=== PATIENT | female | born 1985 | race Caucasian/White ===

== ENCOUNTER → 2022-08-09 06:14 | Outpatient (CLI) | payer BC, SELFPAY | PROVIDERS: PCP Nurse Practitioner Family; Visit Provider Nurse Practitioner Family | DX: R05.9 Cough, unspecified (principal); J02.9 Acute pharyngitis, unspecified; Z20.822 Contact with and (suspected) exposure to COVID-19 | CPT/HCPCS: 87070; C9803; U0003; U0005 ==

== ENCOUNTER → 2022-09-22 19:44 | Outpatient (CLI) | payer BC, SELFPAY | LOC: LAB 19:45 → LAB.DROPOF 09-23 06:13 | PROVIDERS: PCP Nurse Practitioner Family; Visit Provider Nurse Practitioner Family | DX: Z20.822 Contact with and (suspected) exposure to COVID-19 (principal) | CPT/HCPCS: C9803; U0003; U0005 ==

== ENCOUNTER 2024-02-24 18:00 | Outpatient (CLI) | payer BC, SELFPAY ==
[2024-02-24 16:40] LABS: Alanine Aminotransferase 23 U/L (12-78); Albumin Level 4.2 g/dl (3.5-5.0); Albumin/Globulin Ratio 1.4 (1.1-1.8); Alkaline Phosphatase 95 U/L (38-126); Anion Gap 10.8 mEq/L (5-15); Aspartate Amino Transferase 30 U/L (14-36); Bilirubin,Total 0.7 mg/dl (0.2-1.3); Blood Urea Nitrogen 14 mg/dl (7-17); Calcium 9.9 mg/dl (8.4-10.2); Carbon Dioxide 26 mmol/L (22.0-30.0); Chloride 107 mmol/L (98-107); Cholesterol 220 mg/dl (140-200); Estimated Glomerular Filt Rate 111 ml/min (>60); GFR (African American) 135 ML/MIN (>60); Glucose 79 mg/dl (74-100); HDL Cholesterol 74 mg/dl (40-60); Potassium 4.8 mmoL/L (3.5-5.1); Sodium 139 mmol/L (136-145); Total Protein,Serum 7.2 g/dl (6.3-8.2); Triglycerides 51 mg/dl (30-150); VLDL Cholesterol 10 mg/dL (0-40)
[2024-02-24 16:50] LABS: Direct LDL Cholesterol 133.27 mg/dL (100-129)
== END 2024-02-24 23:59 | disposition home or self-care (01) ==
LOC: LAB.DROPOF 02-25 09:30
PROVIDERS: PCP Nurse Practitioner Family; Visit Provider Nurse Practitioner Family
DX: Z13.220 Encounter for screening for lipoid disorders (principal)
CPT/HCPCS: 80053; 80061

== ENCOUNTER 2025-08-05 17:12 | Outpatient (CLI) | payer BC, SELFPAY ==
--- OUTSIDE RECORDS SUMMARY | 2025-07-26 12:01 | XMS_ITS | Encounter Summary ---
Author Organization [facility] ([place], [place], [place], [place]) Address [address] [place] [address] Care Team Providers Care Data Analyst Name Role Phone Yesenia Arias NP Primary Care Provider Reason for Referral * Diagnostic X-Ray (Routine) - New Request Specialty Diagnoses / Procedures Referred By Linda miguel Referred To Contact Radiology Diagnoses Left foot pain Procedures XR foot 3 views left Yesenia Arias NP [address] [place] [address] Phone: tel: fax: Referral ID Status Reason Start Date Expiration Date V isits Requested Visits Authorized [id number] New Request 07/26/2025 07/26/2026 1 1 Reason for Visit * Diagnostic X-Ray (Routine) - New Request Specialty Diagnoses / Procedures Referred By Linda miguel Referred To Contact Radiology Diagnoses Left foot pain Procedures XR foot 3 views left Yesenia Arias NP [address] [place] [address] Phone: tel: fax: Referral ID Status Reason Start Date Expiration Date V isits Requested Visits Authorized [id number] New Request 07/26/2025 07/26/2026 1 1 Encounter Details Date Type Department Care Team (Latest Contact Info) Description 07/26/2025 12:01 PM EDT - 07/26/2025 11:59 PM EDT Hospital Encounter [facility] Diagnostic Imaging [address] [place] [phone] Yesenia Arias NP [address] [place] [address] Left foot pain Discharge Disposition: Home or Self Care Social History Tobacco Use Types Packs/Day Years Used Date Smoking Tobacco: Never Assessed Comments Unknown Sex and Gender Information Value Date Recorded Sex Assigned at Not on file Legal Sex Female 10:48 AM CDT Gender Identity Not on file Sexual Orientation Not on file documented as of this encounter Plan of Treatment Not on file documented as of this encounter Procedures Procedure Name Priority Date/Time Associated Diagnosis Comments XR FOOT 3 VIEWS LEFT Routine 07/26/2025 12:07 PM EDT Left foot pain documented in this encounter Results * XR foot 3 views left (07/26/2025 12:07 PM EDT) Anatomical Region Laterality Modality Foot, Ankle X-Ray 07/29/2025 8:46 AM EDT Impressions 07/29/2025 9:07 AM EDT No acute bony abnormality. Images reviewed, interpreted, and dictated by Dr. Celia Galeana. Transcribed by Robin Hardy PA-C. Narrative 07/29/2025 9:07 AM EDT LEFT FOOT HISTORY: Left foot pain. FINDINGS: Three views show no evidence of an acute, displaced fracture or dislocation of the visualized bony architecture. The joint spaces appear normal. Procedure Note Celia Galeana MD - 07/29/2025 LEFT FOOT HISTORY: Left foot pain. FINDINGS: Three views show no evidence of an acute, displaced fracture or dislocation of the visualized bony architecture. The joint spaces appear normal. IMPRESSION: No acute bony abnormality. Images reviewed, interpreted, and dictated by Dr. Celia Galeana. Transcribed by Robin Hardy PA-C. Yesenia Arias NP IMG DIAGNOSTIC IMAGING ORDERABLES Final Result documented in this encounter Visit Diagnoses Diagnosis Left foot pain Pain in soft tissues of limb documented in this encounter Care Teams Data Analyst Relationship Specialty Start Date End Date Yesenia Arias NP [address] [place] [address] PCP - General Nurse Practitioner 07/26/25 documented as of this encounter
[2025-08-05 19:39] LABS: Hematocrit 41.5 % (37.0-47.0); Hemoglobin 13.3 g/dL (12.2-16.2); Immature Granulocytes % 0.3 %; Mean Corpuscular HGB Conc 32.0 g/dL (31.8-35.4); Mean Corpuscular Hemoglobin 28.2 pg (27.0-31.2); Mean Corpuscular Volume 87.9 fl (81-99); Nucleated Red Blood Cells % 0 %; Platelet Count 292 K/mm3 (142-424); Red Blood Count 4.72 M/mm3 (4.20-5.40); Red Cell Distribution Width-SD 40.7 fL; White Blood Count 8.8 K/mm3 (4.8-10.8)
[2025-08-05 20:11] LABS: Alanine Aminotransferase 48 U/L (12-78); Albumin Level 4.2 g/dl (3.5-5.0); Albumin/Globulin Ratio 1.3 (1.1-1.8); Alkaline Phosphatase 141 U/L (38-126); Anion Gap 17.9 mEq/L (5-15); Aspartate Amino Transferase 36 U/L (14-36); Bilirubin,Total 0.8 mg/dl (0.2-1.3); Blood Urea Nitrogen 13 mg/dl (7-17); Calcium 9.2 mg/dl (8.4-10.2); Carbon Dioxide 23 mmol/L (22.0-30.0); Chloride 102 mmol/L (98-107); Cholesterol 208 mg/dl (140-200); Creatinine,Serum 0.60 mg/dl (0.52-1.04); Estimated Glomerular Filt Rate 110 ml/min (>60); GFR (African American) 133 ML/MIN (>60); Globulin 3.2 g/dL (1.3-3.2); HDL Cholesterol 40 mg/dl (40-60); Potassium 4.9 mmoL/L (3.5-5.1); Sodium 138 mmol/L (136-145); Total Protein,Serum 7.4 g/dl (6.3-8.2); Triglycerides 136 mg/dl (30-150)
[2025-08-05 20:40] LABS: Glucose 48 mg/dl (74-100)
[2025-08-05 20:41] LABS: Thyroid Stimulating Hormone 2.56 uIU/mL (0.465-4.68)
[2025-08-05 21:00] LABS: Hepatitis C Ab Qual. W/ RFX NEGATIVE (Negative)
--- OUTSIDE RECORDS SUMMARY | 2025-08-06 17:13 | XMS_ITS | Encounter Summary ---
Author Organization [employer] ([place], [place], [place], [place]) Address [address] [place] [address] Care Team Providers Care Data Entry Technician Name Role Phone Yesenia Arias NP Primary Care Provider Reason for Referral * Diagnostic X-Ray (Routine) - New Request Specialty Diagnoses / Procedures Referred By Linda miguel Referred To Contact Radiology Diagnoses Left foot pain Procedures XR foot 3 views left Yesenia Arias NP [address] [place] [address] Phone: tel: fax: Referral ID Status Reason Start Date Expiration Date V isits Requested Visits Authorized [id number] New Request 07/26/2025 07/26/2026 1 1 Encounter Details Date Type Department Care Team (Late st Contact Info) Description 07/26/2025 Outside Orders [facility] Admitting [address] [place] [phone] Yesenia Arias NP [address] [place] [address] Left foot pain (Primary Dx) Social History Tobacco Use Types Packs/Day Years Used Date Smoking Tobacco: Never Assessed Comments Unknown Sex and Gender Information Value Date Recorded Sex Assigned at Not on file Legal Sex Female 10:48 AM CDT Gender Identity Not on file Sexual Orientation Not on file documented as of this encounter Plan of Treatment Not on file documented as of this encounter Results * XR foot 3 [...] by Robin Hardy PA-C. Yesenia Arias NP IM DIAGNOSTIC IMAGING ORDERABLES Final Result documented in this encounter Visit Diagnoses Diagnosis Left foot pain- Primary Pain in soft tissues of limb Left foot pain Pain in soft tissues of limb documented in this encounter Care Teams Data Entry Technician Relationship Specialty Start Date End Date Yesenia Arias NP [facility] [place] [address] PCP - General Nurse Practitioner 07/26/25 documented as of this encounter
--- OUTSIDE RECORDS SUMMARY | 2025-08-06 17:13 | XMS_ITS | Clinical Summary ---
Author Organization [employer] ([place], [place], [place], [place]) Address [address], [place] [address] Care Team Providers Care Construction Ironworker Name Role Phone Yesenia Arias NP Primary Care Provider Encounters Date Type Department Care Team Description 07/26/2025 12:01 PM EDT - 07/26/2025 11:59 PM EDT Hospital Encounter Diagnostic Imaging [address] [place] [phone] Yesenia Arias NP Left foot pain Discharge Disposition: Home or Self Care 07/26/2025 Travel 07/26/2025 Outside Orders Admitting [address] [place] [phone] Yesenia Arias NP Left foot pain (Primary Dx) from Last 3 Months Social History Tobacco Use Types Packs/Day Years Used Date Smoking Tobacco: Never Assessed Comments Unknown Sex and Gender Information Value Date Recorded Sex Assigned at Not on file Legal Sex Female 10:48 AM CDT Gender Identity Not on file Sexual Orientation Not on file Plan of Treatment Health Maintenance Due Date Last Done Comments Depression Screening (12+) 1996 Tobacco Cessation Counseling and Screening (12+) 1996 HIV Screening 1999 Hepatitis C Screening 2002 Pap Smear 2005 DTAP/TDAP/TD VACCINES (2 - Td or Tdap) 07/22/2008 07/22/1998 Breast Cancer Screening 2024 COVID-19 VACCINE ( season) 2025 07/15/2022, 09/10/2021, 12/19/2020, Additional history exists Influenza Vaccine (#1) 2025 Pneumococcal Vaccine: 0-49 Years Aged Out No longer eligible based on patient's age to complete this topic Procedures Procedure Name Priority Date/Time Associated Diagnosis Comments XR FOOT 3 VIEWS LEFT Routine 07/26/2025 12:07 PM EDT Left foot pain from Last 3 Months Results * XR foot 3 views left [...] NP IMG DIAGNOSTIC IMAGING ORDERABLES Final Result from Last 3 Months Insurance BLUE CROSS/BLUE SHIELD Care Teams Construction Ironworker Relationship Specialty Start Date End Date Yesenia Arias, DAT [address] [place] [address] PCP - General Nurse Practitioner 07/26/25
--- OUTSIDE RECORDS SUMMARY | 2025-08-06 17:13 | XMS_ITS | Referral Summary ---
Author Organization [employer] ([place], [place], [place], [place]) Address [address] [place] [address] Care Team Providers Care Orchard Pruner Name Role Phone Yesenia Arias NP Primary Care Provider Encounters Date Type Department Care Team Description 07/26/2025 Travel 07/26/2025 12:01 PM EDT - 07/26/2025 11:59 PM EDT Hospital Encounter [facility] Diagnostic Imaging [address] [place] [phone] Yesenia Arias NP Left foot pain Discharge Disposition: Home or Self Care 07/26/2025 Outside Orders [facility] Admitting [address] [place] [phone] Yesenia Arias NP Left foot pain (Primary Dx) from Last 3 Months Social History Tobacco Use Types Packs/Day Years Used Date Smoking Tobacco: Never Assessed Comments Unknown Sex and Gender Information Value Date Recorded Sex Assigned at Not on file Legal Sex Female 10:48 AM CDT Gender Identity Not on file Sexual Orientation Not on file Plan of Treatment Not on file Procedures Procedure Name Priority Date/Time Associated Diagnosis [...] Final Result from Last 3 Months Insurance /BLUE SHIELD Care Teams Orchard Pruner Relationship Specialty Start Date End Date Yesenia Arias NP [address] [place] [phone] PCP - General Nurse Practitioner 07/26/25
--- OUTSIDE RECORDS SUMMARY | 2025-08-06 17:13 | XMS_ITS | Encounter Summary ---
Author Organization [employer] ([place], [place], [place], [place]) Address [address] [place] [address] Care Team Providers Care Ring Maker Name Role Phone Yesenia Arias NP Primary Care Provider Encounter Details Date Type Department Care Team (Latest Contact Info) Description 07/26/2025 Travel Social History Tobacco Use Types Packs/Day Years Used Date Smoking Tobacco: Never Assessed Comments Unknown Sex and Gender Information Value Date Recorded Sex Assigned at Not on file Legal Sex Female 10:48 AM CDT Gender Identity Not on file Sexual Orientation Not on file documented as of this encounter Plan of Treatment Not on file documented as of this encounter Visit Diagnoses Not on filedocumented in this encounter Care Teams Ring Maker Relationship Specialty Start Date End Date Yesenia Arias, DAT [address] [place] [address] PCP - General Nurse Practitioner 07/26/25 documented as of this encounter
[2025-08-07 10:13] LABS: Hepatitis B Surface Antigen Negative (Negative)
== END 2025-08-05 23:59 | disposition home or self-care (01) ==
LOC: LAB.DROPOF 08-06 17:12
PROVIDERS: PCP Nurse Practitioner Family; Visit Provider Nurse Practitioner Family
DX: K76.0 Fatty (change of) liver, not elsewhere classified (principal); E66.811 Obesity, class 1; Z11.4 Encounter for screening for human immunodeficiency virus [HIV]; Z11.59 Encounter for screening for other viral diseases
CPT/HCPCS: 80053; 80061; 84443; 85025; 86803; 87340; 87389